=== PATIENT | male | born 1960 | race African-American/Black ===

== ENCOUNTER 2016-07-27 16:51 | Emergency (ER) | payer MEDICARE, MEDICAID ==
[~2016-07-27] VITALS: Ht 175.3 cm; Wt 73.0 kg
[2016-07-27 17:50] VITALS: BP 115/74
[2016-07-27] MEDS ORDERED: ARIP10TA14 PO (17:53)
[2016-07-27] MEDS ORDERED: UNKNOWN BP MED (17:54)
== END 2016-07-27 21:33 | disposition home or self-care (01) ==
LOC: ER 17:22
DX: J06.9 Acute upper respiratory infection, unspecified (principal); I10 Essential (primary) hypertension; Z87.11 Personal history of peptic ulcer disease
CPT/HCPCS: 71010; 99283

== ENCOUNTER 2016-08-14 21:01 | Emergency (ER) | payer MEDICARE, MEDICAID ==
[~2016-08-14 21:01] MED LIST: ARIP10TA14 PO; DIPH25CA83 PO; UNKNOWN BP MED
== END 2016-08-15 00:25 | disposition left against medical advice (07) ==
LOC: ER 21:02
DX: H57.9 Unspecified disorder of eye and adnexa (principal); Z53.21 Procedure and treatment not carried out due to patient leaving prior to being seen by health care provider

== ENCOUNTER 2016-10-05 23:45 | Emergency (ER) | payer MEDICARE, MEDICAID ==
[~2016-10-05] VITALS: Ht 175.3 cm; Wt 72.0 kg
[~2016-10-05 23:45] MED LIST changes: +ABIL10 PO; -ARIP10TA14 PO
[2016-10-06] MEDS ORDERED: SODIUM CHLORIDE 0.9% 1,000 ML IV ONE (03:26)
[2016-10-06] MEDS ORDERED: MORPHINE SULFATE 4 MG/ML CPJ (NOT FOR IM USE) IV STA (03:26)
[2016-10-06] MEDS ORDERED: ONDANSETRON HCL 4MG/2ML VIAL IV STA (03:26)
[2016-10-06 03:52] LABS: BASOPHILS % 0.7 % (0.0-2.0); EOSINOPHILS % 4.7 % (0.0-5.0); HEMOGLOBIN. 14.4 g/dL (14.0-18.0); LYMPHOCYTES % 43.4 % (20.0-50.0); MEAN CORPUSCULAR HEMOGLOBIN 31.3 pg (28.0-32.0); MEAN CORPUSCULAR VOLUME 91.2 fL (80.0-94.0); MEAN PLATELET VOLUME 7.7 fl (7.4-10.4); NEUTROPHILS % 44.2 % (40.0-76.0); PLATELET 222 x1000/uL (130-400); RED BLOOD CELL COUNT 4.61 mill/uL (4.7-6.1); RED CELL DISTRIBUTION WIDTH 13.9 % (11.6-14.6)
[2016-10-06 03:54] VITALS: BP 136/90
[2016-10-06 03:55] LABS: PROTHROMBIN TIME 10.2 sec
[2016-10-06 04:02] LABS: CARBON DIOXIDE 30 mEq/L (21-32); CHLORIDE 106 mEq/L (98-107)
[2016-10-06] MEDS ORDERED: PANTOPRAZOLE SODIUM 40 MG/VIAL IV SCH (04:15)
[2016-10-06 09:00] LABS: GLUCOSE URINE NEGATIVE (NEGATIVE); KETONES URINE NEGATIVE (NEGATIVE); LEUKOCYTE ESTERASE URINE NEGATIVE (NEGATIVE); NITRITE URINE NEGATIVE (NEGATIVE); OCCULT BLOOD URINE NEGATIVE (NEGATIVE); PH URINE 6.5 (4.5-8.0); PROTEIN URINE NEGATIVE (NEGATIVE); SPECIFIC GRAVITY URINE 1.021 (1.005-1.030)
[2016-10-06 09:01] LABS: CLARITY URINE CLEAR (CLEAR); COLOR URINE YELLOW (YELLOW)
== END 2016-10-06 05:28 | disposition home or self-care (01) ==
LOC: ER 23:52
DX: R10.13 Epigastric pain (principal); I10 Essential (primary) hypertension; Z98.890 Other specified postprocedural states
CPT/HCPCS: 36415; 80053; 81003; 83690; 85025; 85610; 96374; 96375; 99284; C9113; J2405; J7030

== ENCOUNTER 2016-10-27 21:06 | Emergency (ER) | payer MEDICARE, MEDICAID ==
[~2016-10-27] VITALS: Ht 175.3 cm; Wt 73.0 kg
[2016-10-27 21:59] VITALS: BP 157/100
== END 2016-10-28 02:17 | disposition left against medical advice (07) ==
LOC: ER 21:06
DX: M79.675 Pain in left toe(s) (principal); Z53.21 Procedure and treatment not carried out due to patient leaving prior to being seen by health care provider

== ENCOUNTER 2016-10-28 03:58 | Emergency (ER) | payer MEDICARE, MEDICAID ==
[~2016-10-28] VITALS: Ht 175.3 cm; Wt 73.0 kg
[2016-10-28 06:56] VITALS: BP 141/99
== END 2016-10-28 07:48 | disposition home or self-care (01) ==
LOC: ER 06:53
DX: M79.675 Pain in left toe(s) (principal); M79.89 Other specified soft tissue disorders; I10 Essential (primary) hypertension; W22.8XXA Striking against or struck by other objects, initial encounter; Y93.89 Activity, other specified; Y92.89 Other specified places as the place of occurrence of the external cause; Y99.0 Civilian activity done for income or pay
CPT/HCPCS: 73630; 99284

== ENCOUNTER 2019-10-20 19:46 | Emergency (ER) | payer MEDICARE, MEDICAID ==
[~2019-10-20] VITALS: Ht 175.3 cm; Wt 72.6 kg
[2019-10-20 20:11] VITALS: BP 118/75
[2019-10-20] MEDS ORDERED: GUAIFENESIN/CODEINE 200-20MG/10ML UDC PO ONE (22:45)
[2019-10-20] MEDS ORDERED: DEXAMETHASONE 4MG TABLET PO ONE (22:45)
== END 2019-10-21 06:10 | disposition left against medical advice (07) ==
LOC: ER 19:46
DX: R05 Cough (principal); Z53.21 Procedure and treatment not carried out due to patient leaving prior to being seen by health care provider
CPT/HCPCS: 82962; J8540